=== PATIENT | female | born 1975 | race Caucasian/White ===

== ENCOUNTER → 2020-10-30 10:20 | Outpatient (BNVA) | payer BC, SELFPAY | PROVIDERS: Family Provider Nurse Practitioner Family; Visit Provider Obstetrics & Gynecology | DX: Z12.4 Encounter for screening for malignant neoplasm of cervix (principal); R30.0 Dysuria; Z01.419 Encounter for gynecological examination (general) (routine) without abnormal findings; Z30.9 Encounter for contraceptive management, unspecified | CPT/HCPCS: 80061; 81000; 83036; 87086; 88175 ==

== ENCOUNTER → 2020-11-20 11:40 | Outpatient (BNVA) | payer BC, SELFPAY | PROVIDERS: Family Provider Nurse Practitioner Family; Visit Provider Obstetrics & Gynecology | DX: N85.4 Malposition of uterus (principal); Z97.5 Presence of (intrauterine) contraceptive device | CPT/HCPCS: 76857; 81025 ==

== ENCOUNTER 2020-12-06 14:09 | Outpatient (CLI) | payer BC, SELFPAY ==
--- NOTE | 2020-12-06 14:30 | MM_ITS ---
WS: [id number] BILATERAL DIGITAL SCREENING MAMMOGRAPHY WITH CAD CLINICAL INFORMATION: Z12.39 - Encounter for other screening for malignant neoplasm of breast HISTORY: Screening mammogram. No current complaints. COMPARISON: None. TECHNIQUE: Bilateral CC and MLO views. FINDINGS: Scattered fibroglandular densities bilaterally. 8 mm ovoid asymmetric density upper outer left breast is nonspecific. Recommend left breast diagnostic mammography and ultrasound. Small ovoid nodule in t he left chest wall the MLO view with a few calcifications likely represents a benign fibroadenoma. Right breast is unremarkable. MM/[place] [id number] IMPRESSION: BI-RADS: 0-Incomplete: Need additional imaging evaluation FOLLOW UP: Need Additional Imaging RECOMMEND LEFT BREAST DIAGNOSTIC MAMMOGRAPHY AND ULTRASOUND.
== END 2020-12-06 14:10 | disposition home or self-care (01) ==
LOC: RADSHAW 14:10
PROVIDERS: PCP Nurse Practitioner Family; Visit Provider Obstetrics & Gynecology
DX: Z12.31 Encounter for screening mammogram for malignant neoplasm of breast (principal); N64.89 Other specified disorders of breast
CPT/HCPCS: 77067

== ENCOUNTER → 2020-12-09 16:02 | Outpatient (BNVA) | payer BC, SELFPAY | PROVIDERS: PCP Nurse Practitioner Family; Visit Provider Nurse Practitioner | DX: N39.0 Urinary tract infection, site not specified (principal); R11.0 Nausea; Z68.37 Body mass index [BMI] 37.0-37.9, adult | CPT/HCPCS: 81000; 87077; 87086; 87184 ==

== ENCOUNTER 2020-12-16 08:53 | Outpatient (CLI) | payer BC, SELFPAY ==
--- NOTE | 2020-12-16 09:00 | MM_ITS ---
WS: [id number] LEFT DIGITAL MAMMOGRAPHY WITH CAD CLINICAL INFORMATION: R92.8 - Other abnormal and inconclusive findings on diagnostic imaging of breas t COMPARISON: December 06, 2020 TECHNIQUE: 5 views of the left breast were obtained. FINDINGS: Scattered fibroglandular densities of the left breast. Stable 8 mm ovoid asymmetric density upper out er left breast. Ultrasound is pending. ULTRASOUND BREAST LEFT TECHNIQUE: Ultrasound left breast focused area of concern. CLINICAL INFORMATION: R92.8 - Other abnormal and inconclusive findings on diagnostic imaging of breas t COMPARISON: None. FINDINGS: Ultrasound left breast at the 2:00 position along the axillary tail and T2-6 CM from the nipple. Inci dental lymph node along the axillary tail measuring 9 mm. A few incidental areas of fibrocystic huber e. No suspicious cystic or solid lesions. No lesions to target for biopsy. MM/[place] [id number] IMPRESSION: BI-RADS: 2-Benign FOLLOW UP: 1 Year Follow-up Recommend return to annual screening mammography.
--- NOTE | 2020-12-16 09:30 | US_ITS ---
WS: [id number] LEFT DIGITAL MAMMOGRAPHY WITH CAD CLINICAL INFORMATION: R92.8 - Other abnormal and inconclusive findings on diagnostic imaging of breas t COMPARISON: December 06, 2020 TECHNIQUE: 5 views of the left breast were obtained. FINDINGS: Scattered fibroglandular densities of the left breast. Stable 8 mm ovoid asymmetric density upper out er left breast. Ultrasound is pending. ULTRASOUND BREAST LEFT TECHNIQUE: Ultrasound left breast focused area of concern. CLINICAL INFORMATION: R92.8 - Other abnormal and inconclusive findings on diagnostic imaging of breas t COMPARISON: None. FINDINGS: Ultrasound left breast at the 2:00 position along the axillary tail and T2-6 CM from the nipple. Inci dental lymph node along the axillary tail measuring 9 mm. A few incidental areas of fibrocystic huber e. No suspicious cystic or solid lesions. No lesions to target for biopsy. US/US breast LT limited* [id number] IMPRESSION: BI-RADS: 2-Benign FOLLOW UP: 1 Year Follow-up Recommend return to annual screening mammography.
== END 2020-12-16 08:54 | disposition home or self-care (01) ==
LOC: RADSHAW 08:56
PROVIDERS: PCP Nurse Practitioner Family; Visit Provider Obstetrics & Gynecology
DX: R92.8 Other abnormal and inconclusive findings on diagnostic imaging of breast (principal)
CPT/HCPCS: 76642; 77065

== ENCOUNTER 2022-10-08 08:18 | Emergency (ER) | payer BC, SELFPAY ==
[2022-10-08 08:23] VITALS: BP 136/95; PULSE 205; RESP 25; TEMP 36.4; O2SAT 98; BMI 21.8
--- NOTE | 2022-10-08 08:25 | XR_ITS ---
WS: [id number] Portable AP upright chest, 10/08/2022 Clinical Data: dyspnea/cough Comparison: None. Findings: No nodules, masses or effusions are seen. The heart is normal. The pulmonary vascularity is not increased. No pneumonia or pneumothorax is seen. There are monitor leads on the chest wall. Ther e is an resuscitation paddle overlying the central portion of the chest. XR/XR chest 1V portable [id number] Impression: Negative chest.
--- NOTE | 2022-10-08 08:30 | ECG_ITS ---
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 Measurements Intervals [place] Rate: 202 P: 0 MI: 0 QRS: -12 QRSD: 107 T: 48 QT: 222 QTc: 407 Interpretive Statements SUPRAVENTRICULAR TACHYCARDIA MODERATE VOLTAGE CRITERIA FOR LVH, CONSIDER NORMAL VARIANT [MEETS CRITERIA IN ONE OF: R(aVL), S(V1), R(V5), R(V5/V6)+S(V1)] NONSPECIFIC ST & T-WAVE ABNORMALITY CRITICAL TEST RESULT No previous ECG available for comparison Electronically Signed On 10-08-2022 8:36:39 RUBBER TRIMMER by Anitha Segura M.D. [id number]
[2022-10-08] MEDS: adenosine 3 mg/mL SDV 2mL 6 MG IVP (08:37)
--- NOTE | 2022-10-08 08:39 | W.ED.ARRPALP ---
HPI - Arrhythmia/Palpitations General: Chief Complaint: Arrhythmia/Palpitations Stated Complaint: High HR, Chest Pain, SOB Time Seen by Provider: 10/08/22 08:24 Source: patient Mode of arrival: ambulatory History of Present Illness: 47-year-old female presents emergency room with rapid heart rate shortness of breath. She was getting ready to go to work and suddenly felt a rapid heart rate and onset of shortness of breath. She had some mild chest discomfort. On arrival here she is in SVT. MD complaint: rapid heart beat and heart racing Onset (ago): hour(s) Duration: constant Severity: moderate Context: occurred during rest Associated symptoms: Deny anxiety, cough, diaphoresis, muscle cramps, nausea, paresthesias, pre-syncope, sense of impending doom, short of breath, syncope or vomiting Review of Systems Const: Denies: fever(s), chills, fatigue, malaise or diaphoresis ENMT: Reports: nasal congestion; Denies: throat pain, ear or mastoid pain or nasal discharge Card: Reports: chest pain and palpitations; Denies: irregular heart rhythm, edema, swelling of feet/ankles, syncope or pre-syncope Resp: Reports: dyspnea; Denies: productive cough or non-productive cough GI: Denies: abdominal pain, nausea or vomiting : Denies: flank pain, difficulty voiding, dysuria, urinary frequency or urinary urgency Musc: Denies: muscle cramps Skin/Breast: Denies: rash or pruritus Psych: Denies: anxiety PFSH ED PFSH: Medical History Anxiety and depression Mood swings-symptoms are not for years but has been on medication since 2019. Chronic hypertension Diagnosed in 2005 and is well controlled with medication managed by primary care provider. She does not have a education counselor No pertinent past medical history Denies diabetes, asthma, seizures, DVT/PE PCP: FLORY Duong Surgical History Hx of lithotripsy 2010 at [facility] [place]. Vaughn-had a stent placed and removed as well. Family History Father Diabetes Heart disease Hypertension Mother Hypertension Sister Hypertension Thyroid condition Family/Other Thyroid condition Aidan Denies family history of Colon cancer Ovarian cancer Hyperlipidemia Breast cancer Uterine cancer Stroke Physical Exam Const: GENERAL APPEARANCE: cooperative and comfortable ORIENTATION/CONSCIOUSNESS: Yes awake, Yes oriented to person, Yes oriented to place and Yes oriented to time HENMT: COMMON NORMALS: normocephalic, atraumatic and hearing grossly normal bilaterally HEAD & SCALP: normocephalic and atraumatic Resp: COMMON NORMALS: normal respiratory effort, No retractions, No use of accessory muscles and clear to auscultation bilaterally AUSCULTATION: clear to auscultation bilaterally Cardio: COMMON NORMALS: No murmurs present (Cardio) RATE: tachycardic RHYTHM: abnormal rhythm GI: COMMON NORMALS: Soft to palpation and No hepatosplenomegaly present AUSCULTATION: Yes normoactive bowel sounds PALPATION: Yes Soft to palpation, No Tenderness to palpation present (GI), No Guarding due to palpation present (GI) and Yes No hepatosplenomegaly present Extremity: COMMON NORMALS: normal to inspection, capillary refill normal, no clubbing, cyanosis or edema, no calf tenderness and no pedal edema Neuro: SENSORIUM/ORIENTATION: Yes oriented to person, Yes oriented to place and Yes oriented to time Skin: COMMON NORMALS: no rashes or lesions noted GENERAL SKIN EXAM: no rashes or lesions noted Course Vital Signs: Vital signs: Vital Signs Temperature 97.6 F 10/08/22 08:23 Pulse Rate 205 H 10/08/22 08:23 Respiratory Rate 25 H 10/08/22 08:23 Blood Pressure 136/95 10/08/22 08:23 Pulse Oximetry 98 10/08/22 08:23 Oxygen Delivery Me thod 10/08/22 08:23 MDM - Arrhythmia/Palpitations Medical Decision Making Patient presents with SVT and a rate of over 200 responded to a single dose of adenosine. Was supplemented with a IV dose of metoprolol at 2.5 mg and then p.o. Toprol she is feeling much better. We will have her decrease her valsartan to 80 mg and add Toprol-XL 25 mg. Follow-up with cardiology within the next week to recheck return if has further problems. Medical Records I reviewed the patient's medical records. Lab Data I reviewed the patient's lab results. 10/08/22 08:35 10/08/22 08:35 Radiology Impressions Chest X-Ray 10/08/22 08:25 Impression: Negative chest. Laboratory Results WBC 9.7 10^3/uL (4.0-10.0) 10/08/22 08:35 RBC 4.99 10^6/uL (4.1-5.3) 10/08/22 08:35 Hgb 15.0 g/dL (11.5-15.3) 10/08/22 08:35 Hct 44.0 % (37.0-47.0) 10/08/22 08:35 MCV 88.2 fl (81-99) 10/08/22 08:35 MCH 30.1 pg (28.0-34.0) 10/08/22 08:35 MCHC 34.1 g/dL (30.0-36.0) 10/08/22 08:35 RDW 12.6 % (12.1-15.1) 10/08/22 08:35 Plt Count 436 10^3/cmm (130-400) H 10/08/22 08:35 MPV 9.6 fL (7.4-10.4) 10/08/22 08:35 Neut % (Auto) 54.4 % 10/08/22 08:35 Lymph % (Auto) 35.4 % 10/08/22 08:35 Whitman % (Auto) 7.2 % 10/08/22 08:35 Eos % (Auto) 2.0 % 10/08/22 08:35 Baso % (Auto) 0.7 % 10/08/22 08:35 Neut # (Auto) 5.28 10^3/uL (1.8-7.7) 10/08/22 08:35 Lymph # (Auto) 3.4 10^3/uL (0.8-4.8) 10/08/22 08:35 Whitman # (Auto) 0.7 10^3/uL (0.2-0.9) 10/08/22 08:35 Eos # (Auto) 0.2 10^3/uL (0.0-0.8) 10/08/22 08:35 Baso # (Auto) 0.1 10^3/uL (0.0-0.1) 10/08/22 08:35 Nucleated RBC % (auto) 0 % 10/08/22 08:35 Nucleated RBCs # 0.0 /100WBC 10/08/22 08:35 Sodium 135 mmol/L (136-145) L 10/08/22 08:35 Potassium 3.8 mmol/L (3.5-5.1) 10/08/22 08:35 Chloride 101 mmol/L (98-107) 10/08/22 08:35 Carbon Dioxide 19 mmol/L (22-29) L 10/08/22 08:35 Anion Gap 18.8 (5-19) 10/08/22 08:35 BUN 12 mg/dL (6-20) 10/08/22 08:35 Creatinine 0.7 mg/dL (0.5-0.9) 10/08/22 08:35 GFR Calculation 89.3 mL/min (90-130) L 10/08/22 08:35 Glucose 187 mg/dL (65-115) H 10/08/22 08:35 Calculated Osmolality 285 mOsm/kg (285-295) 10/08/22 08:35 Calcium 8.7 mg/dL (8.5-10.5) 10/08/22 08:35 Total Bilirubin 0.5 mg/dL (0.15-1.2) 10/08/22 08:35 AST 20 U/L (0-32) 10/08/22 08:35 ALT 18 U/L (0-33) 10/08/22 08:35 Alkaline Phosphatase 59 U/L (35-105) 10/08/22 08:35 Troponin T Baseline 9 ng/L (0-10) 10/08/22 08:35 Total Protein 7.2 g/dL (6.6-8.7) 10/08/22 08:35 Albumin 4.1 g/dL (3.5-5.2) 10/08/22 08:35 Globulin 3.1 g/dL (1.3-4.6) 10/08/22 08:35 TSH 1.83 uIU/mL (0.27-4.20) 10/08/22 08:35 Discharge Plan Discharge Patient Disposition: Home Clinical Impression: Supraventricular tachycardia Condition: Stable Prescriptions: New Toprol XL 25 mg tablet extended release 24 hr 25 mg PO DAILY Qty: 30 0RF valsartan 80 mg tablet 80 mg PO DAILY Qty: 30 0RF Discontinued valsartan 160 mg tablet 160 mg PO BEDTIME No Action bupropion HCl 300 mg tablet extended release 24 hr 300 mg PO QAM norethindrone (contraceptive) [Ortho Micronor] 0.35 mg tablet 0.35 mg PO DAILY Qty: 84 3RF nitrofurantoin monohyd/m-cryst 100 mg capsule 100 mg PO BID Discharge Orders: Discharge ED (Routine); Ordered 10/08/22 Ordered By: Hector Diaz Referrals: Jocelyn Perez APN [Primary Care Provider] - Activity Restrictions/Additional Instructions: You were seen today for supraventricular tachycardia. Your heart rate slowed with the appropriate medications. Recommend you decrease your valsartan to 80 mg daily we will add Toprol-XL 25 mg daily. Case management will make arrangements for follow-up with the cardiology clinic. If you have recurrent episodes you can try to slow your heart rate with a Valsalva maneuver bearing down if that is not successful return to the emergency room. Coding Level of Care Code ED Eyeglass Lens Generator for Elvia Fwd Exam Detailed
[2022-10-08 08:48] LABS: Basophils # 0.1 10^3/uL (0.0-0.1); Basophils % 0.7 %; Eosinophils # 0.2 10^3/uL (0.0-0.8); Lymphocytes # 3.4 10^3/uL (0.8-4.8); Lymphocytes % 35.4 %; Mean Corpuscular HGB Conc 34.1 g/dL (30.0-36.0); Mean Corpuscular Hemoglobin 30.1 pg (28.0-34.0); Mean Corpuscular Volume 88.2 fl (81-99); Mean Platelet Volume 9.6 fL (7.4-10.4); Monocytes # 0.7 10^3/uL (0.2-0.9); Monocytes % 7.2 %; Neutrophils # 5.28 10^3/uL (1.8-7.7); Neutrophils % 54.4 %; Nucleated Red Blood Cells % 0 %; Platelet Count 436 10^3/cmm (130-400); Red Blood Count 4.99 10^6/uL (4.1-5.3); Red Cell Distribution Width 12.6 % (12.1-15.1); White Blood Count 9.7 10^3/uL (4.0-10.0)
[2022-10-08 09:09] LABS: Troponin(5th) Baseline 9 ng/L (0-10)
[2022-10-08 09:17] LABS: Alanine Aminotransferase 18 U/L (0-33); Albumin Level 4.1 g/dL (3.5-5.2); Alkaline Phosphatase 59 U/L (35-105); Anion Gap 18.8 (5-19); Aspartate Amino Transferase 20 U/L (0-32); Blood Urea Nitrogen 12 mg/dL (6-20); Calcium 8.7 mg/dL (8.5-10.5); Carbon Dioxide 19 mmol/L (22-29); Chloride 101 mmol/L (98-107); Globulin 3.1 g/dL (1.3-4.6); Glomerular Filtration Rate 89.3 mL/min (90-130); Glucose 187 mg/dL (65-115); Osmolality Calculated 285 mOsm/kg (285-295); Potassium 3.8 mmol/L (3.5-5.1); Sodium 135 mmol/L (136-145); Thyroid Stimulating Hormone 1.83 uIU/mL (0.27-4.20); Total Bilirubin 0.5 mg/dL (0.15-1.2); Total Protein 7.2 g/dL (6.6-8.7)
[2022-10-08] MEDS: metoprolol tartrate 1 mg/1 mL SDV 5 mL 2.5 MG IVP (09:29)
[2022-10-08] MEDS: metoprolol succinate ER (24 HR) 25 mg Tablet PO (09:29)
[2022-10-08 10:09] LABS: Blood Urine 2+ (Negative); Glucose Urine UA Trace (Normal); Ketones Urine 1+ (Negative); Protein Urine Neg (Negative); Urine Appearance Turbid (CLEAR); Urine Color Yellow (Yellow); pH Urine 5 (5-7)
[2022-10-08 10:10] LABS: Add Urine Microscopic? YES; Bilirubin Urine Neg (Negative); Leukocyte Esterase Urine 1+ (Negative); Nitrate Urine Negative (Negative); Urobilinogen Urine Neg (Negative)
[2022-10-08 10:13] LABS: Add Urine Culture? No; Bacteria Urine 2+ /hpf; RBC Urine 0-4 /hpf (0-2); Squamous Epithelial Cell Urine 15-25 /hpf (0-5)
[2022-10-08 10:15] VITALS: BP 142/97; PULSE 95; RESP 20; O2SAT 95
--- NOTE | 2022-10-08 13:14 | DCPLANNER ---
Addendum entered by Lachelle Yuen 11/06/22 07:20: Patient had a follow up appointment at [facility] - patient did attend appointment. Addendum entered by Lachelle Yuen 10/09/22 11:23: Patient has a follow up appointment scheduled for Wednesday, October 21, 2022 at 12:[address] Santiago at [facility]. Clinic will call patient with appointment information. Original Note: regulatory compliance manager had message to schedule a follow up appointment for patient with cardiology. regulatory compliance manager sent patients information to the front office staff at [facility]. Patients information will be printed and reviewed. Clinic will call patient with appointment information.
== END 2022-10-08 10:16 | disposition home or self-care (01) ==
PROVIDERS: Emergency Provider Family Medicine; PCP Nurse Practitioner Family
DX: I47.1 Supraventricular tachycardia (principal)
CPT/HCPCS: 71045; 80053; 81001; 84443; 84484; 85025; 93005; 96374; 96375; 99285; J0153; J3490

== ENCOUNTER 2022-11-20 13:15 | Outpatient (CLI) | payer BC, SELFPAY ==
--- NOTE | 2022-11-20 13:30 | USCV_ITS ---
Niharika Amador Age: 47 Gender: F : 1975 Exam Date: 11/20/2022 14:20 Ordering Phys: Frank Santiago M.D ([email or web address]) Technologist: ALLISON [place]am [place] [facility] [place]ication: SHORTNESS OF BREATH, CHEST PAIN BP: 134 / 90 HR: 87 Rhythm: Sinus Technical Quality: Adequate MEASUREMENTS (Male / Female) Normal Values 2D ECHO LVOT Diameter 2.0 cm LV Ejection Fraction MOD 2C 61.2 % LV Ejection Fraction 2C AL 61.2 % LA Diameter 3.0 cm LA Width 3.0 cm LA Height 3.8 cm RA Width 2.1 cm RA Height 3.7 cm Aorta at Sinotubular Diameter 1.9 cm IVC Diameter 1.7 cm M-MODE Aortic Annulus Diameter 2.5 cm LA Ao Ratio MM 1.2 MV E Point Septal Separation 0.3 cm DOPPLER AV Peak Velocity 115.0 cm/s LVOT Peak Velocity 97.0 cm/s AV Area Cont Eq vti 3.1 cm squared AV Area Cont Eq pk 2.7 cm squared MV Peak Velocity 100.0 cm/s MV Area PHT 4.4 cm squared Mitral E to A Ratio 1.0 MV E' Velocity 49.5 cm/s Mitral E to MV E' Ratio 6.8 Mitral E to LV E' Lateral Ratio 5.4 Mitral E to LV E' Septal Ratio 9.2 TR Peak Velocity 168.2 cm/s TR Peak Gradient 11.3 mmHg TR Mean Velocity 142.9 cm/s TR Mean Gradient 8.3 mmHg TR Velocity Time Integral 44.1 cm TV Peak E Velocity 52.0 cm/s Right Atrial Pressure 3.0 mmHg Pulmonary Artery Systolic Pressu 14.3 mmHg PV Peak Velocity 105.0 cm/s RV Acceleration Time 0.1 s RV Ejection Time 0.3 s RV AcT/ET 0.5 FINDINGS Left Ventricle Normal left ventricular size, systolic function and wall thickness, with no regional wall motion abnormalities. Left ventricular ejection fraction is estimated at 60 %. Normal diastolic function. Right Ventricle The right ventricle is normal in size and function. Right Atrium The right atrium is normal in size. Left Atrium The left atrium is normal in size. Mitral Valve Structurally normal mitral valve without significant stenosis or prolapse. There is no mitral regurgitation. Aortic Valve Structurally normal aortic valve without significant sclerosis or stenosis. There is no aortic regurgitation. Tricuspid Valve Structurally normal tricuspid valve without significant stenosis or regurgitation. Pulmonary artery systolic pressure is normal. Pulmonic Valve Structurally normal pulmonic valve without significant stenosis. There is no pulmonic regurgitation. Pericardium Normal pericardium without effusion. Aorta Normal ascending aorta dimension. IVC The inferior vena cava appears normal. CONCLUSIONS 1-Normal left ventricular size, systolic function and wall thickness, with no regional wall motion abnormalities. Left ventricular ejection fraction is estimated at 60 %. Normal diastolic function. 2-No significant valve abnormalities. 3-There is no pericardial effusion. 4-Right atrial pressure is around 5 mm of mercury. Bharati Steele MD (Electronically Signed) Final Date: 20 November 2022 23:52 S
== END 2022-11-20 13:16 | disposition home or self-care (01) ==
LOC: RAD 13:18
PROVIDERS: PCP Nurse Practitioner Family; Visit Provider Internal Medicine
DX: R06.02 Shortness of breath (principal); R07.9 Chest pain, unspecified
CPT/HCPCS: 93306

== ENCOUNTER 2022-12-09 14:55 | Outpatient (CLI) | payer BC, SELFPAY ==
--- NOTE | 2022-12-09 15:06 | MM_ITS ---
WS: [id number] BILATERAL 3D TOMOSYNTHESIS DIGITAL SCREENING MAMMOGRAPHY WITH CAD CLINICAL INFORMATION: Z12.39 - Encounter for other screening for malignant neop... HISTORY: Screening mammogram. No current complaints. COMPARISON: 2020 TECHNIQUE: Bilateral CC and MLO views. FINDINGS: Scattered fibroglandular densities bilaterally. No suspicious focal mass, asymmetry, calcifications, or architectural distortion. No evidence of malignancy. MM/[place] [id number] IMPRESSION: BI-RADS: 1-Negative FOLLOW UP: 1 Year Follow-up Recommend return to annual screening mammography.
== END 2022-12-09 14:56 | disposition home or self-care (01) ==
LOC: RAD 15:01
PROVIDERS: PCP Nurse Practitioner Family; Visit Provider Nurse Practitioner Women's Health
DX: Z12.31 Encounter for screening mammogram for malignant neoplasm of breast (principal)
CPT/HCPCS: 77063; 77067

== ENCOUNTER → 2023-08-23 15:00 | Outpatient (BNVA) | payer BC, SELFPAY | PROVIDERS: PCP Nurse Practitioner Family; Visit Provider Obstetrics & Gynecology | DX: R30.0 Dysuria (principal) | CPT/HCPCS: 81000; 87086 ==

== ENCOUNTER → 2023-11-19 10:00 | Outpatient (BNVA) | payer BC, SELFPAY | PROVIDERS: PCP Nurse Practitioner Family; Visit Provider Nurse Practitioner Women's Health | DX: L65.9 Nonscarring hair loss, unspecified (principal); Z13.0 Encounter for screening for diseases of the blood and blood-forming organs and certain disorders involving the immune mechanism; Z13.228 Encounter for screening for other metabolic disorders; Z13.220 Encounter for screening for lipoid disorders; Z13.29 Encounter for screening for other suspected endocrine disorder; Z13.1 Encounter for screening for diabetes mellitus; Z01.419 Encounter for gynecological examination (general) (routine) without abnormal findings; N95.1 Menopausal and female climacteric states | CPT/HCPCS: 80053; 80061; 82306; 83036; 84439; 84443; 84481; 85025 ==

== ENCOUNTER → 2024-01-25 08:20 | Outpatient (BNVA) | payer BC, SELFPAY | PROVIDERS: PCP Nurse Practitioner Family; Visit Provider Nurse Practitioner Women's Health | DX: E55.9 Vitamin D deficiency, unspecified (principal) | CPT/HCPCS: 82306 ==

== ENCOUNTER → 2025-01-31 12:37 | Outpatient (BNVA) | payer BC, SELFPAY | PROVIDERS: PCP Nurse Practitioner Family; Referring Provider Nurse Practitioner Family; Visit Provider Internal Medicine | DX: E07.9 Disorder of thyroid, unspecified (principal); E55.9 Vitamin D deficiency, unspecified; E78.5 Hyperlipidemia, unspecified | CPT/HCPCS: 36415; 83516; 84439; 84443; 84480; 86376; 86800 ==

== ENCOUNTER 2025-03-16 11:29 | Outpatient (CLI) | payer BC, SELFPAY ==
--- NOTE | 2025-03-16 11:40 | MM_ITS ---
WS: [id number] BILATERAL 3D TOMOSYNTHESIS DIGITAL SCREENING MAMMOGRAPHY WITH CAD CLINICAL INFORMATION: Z12.31 - Encounter for screening mammogram for malignant ... HISTORY: Screening mammogram. No current complaints. COMPARISON: 2022 TECHNIQUE: Bilateral CC and MLO views. FINDINGS: Scattered fibroglandular densities bilaterally. No suspicious focal mass, asymmetry, calcifications, or architectural distortion. No evidence of malignancy. MM/MM scr tomosynthesis [id number] IMPRESSION: DENSITY: There are scattered areas of fibroglandular density. BI-RADS: 1 - Negative. FOLLOW UP: 1 Year Follow-up Recommend return to annual screening mammography.
== END 2025-03-16 11:30 | disposition home or self-care (01) ==
LOC: RAD 11:30
PROVIDERS: PCP Nurse Practitioner Family; Visit Provider Nurse Practitioner Women's Health
DX: Z12.31 Encounter for screening mammogram for malignant neoplasm of breast (principal); R92.323 Mammographic fibroglandular density, bilateral breasts
CPT/HCPCS: 77063; 77067